=== PATIENT | male | born 1945 | race Caucasian/White ===

== ENCOUNTER 2023-12-16 11:14 | Emergency (ER) | payer MEDICARE ==
[~2023-12-16] VITALS: Ht 180.3 cm; Wt 77.1 kg
[~2023-12-16 11:14] MED LIST: CLOP75TA32 PO; FISH OIL PO; GLIP2.5T2 PO; HYDR-4068 PO; LUBI24CA2 PO; MULTIVITAMIN PO; ROSU40 PO; VALS40TA11 PO; VITA100012; ZOLP10TA6 PO
[2023-12-16] MEDS ORDERED: IBUP-2071 PO (13:05)
[2023-12-16] MEDS ORDERED: CLIN-141 PO (13:05)
[2023-12-16 13:12] VITALS: BP 138/72; PULSE 80; RESP 18; O2SAT 98
[2023-12-16] MEDS: CEPHALEXIN 500 MG CAPSULE PO ONE (13:22)
[2023-12-16] MEDS: ACETAMINOPHEN 500 MG TABLET PO ONE (13:23)
== END 2023-12-16 13:31 | disposition home or self-care (01) ==
LOC: EDH 11:14
DX: S90.32XA Contusion of left foot, initial encounter (principal); E11.9 Type 2 diabetes mellitus without complications; Z79.899 Other long term (current) drug therapy; Z98.890 Other specified postprocedural states; X58.XXXA Exposure to other specified factors, initial encounter; Y93.89 Activity, other specified; Y92.89 Other specified places as the place of occurrence of the external cause; Y99.8 Other external cause status
CPT/HCPCS: 73630